=== PATIENT | male | born 1975 | race Hispanic/Latino ===

== ENCOUNTER 2024-05-27 19:27 | Emergency (ER) | payer SELFPAY ==
[2024-05-27] MEDS ORDERED: Fluorescein Opthalmic Strip ONE (19:59)
[2024-05-27] MEDS ORDERED: Tetracaine 0.5% PF 4 ML BOT ONE (19:59)
== END 2024-05-27 22:01 | disposition home or self-care (01) ==
LOC: CSHERS 19:27
DX: T15.01XA Foreign body in cornea, right eye, initial encounter (principal); W26.8XXA Contact with other sharp object(s), not elsewhere classified, initial encounter
CPT/HCPCS: 99283